=== PATIENT | female | born 1945 | race Caucasian/White ===

== ENCOUNTER 2018-05-18 14:46 | Emergency (ER) | payer OTHER ==
[~2018-05-18] VITALS: Ht 172.7 cm; Wt 102.1 kg
[2018-05-18 15:12] LABS: URINE BILIRUBIN NEGATIVE (Negative); URINE BLOOD TRACE (Negative); URINE CLARITY CLEAR; URINE COLOR YELLOW; URINE GLUCOSE-RANDOM NEGATIVE (Negative); URINE KETONES NEGATIVE (Negative); URINE LEUKOCYTES-REFLEX NEGATIVE (Negative); URINE NITRITE-REFLEX NEGATIVE (Negative); URINE PROTEIN NEGATIVE (Negative); URINE SPECIFIC GRAVITY 1.025 (1.005-1.030); URINE UROBILINOGEN 0.2 E.U./dl (0.2-1.0)
[2018-05-18] MEDS ORDERED: PREDNISONE 10 M10 MG PO (15:44)
[2018-05-18] MEDS ORDERED: PRINZIDE 20-251 EACH PO (15:45)
[2018-05-18] MEDS ORDERED: PLAVIX 75 MG TA75 M1 PO (15:45)
[2018-05-18] MEDS ORDERED: CIPRO500 M1 PO (15:45)
[2018-05-18] MEDS ORDERED: METFORMIN HCL500 MG PO (15:45)
[2018-05-18] MEDS ORDERED: ZOCOR20 MG PO (15:46)
[2018-05-18] MEDS ORDERED: NORVASC5 MG PO (15:46)
[2018-05-18 16:00] LABS: ABSOLUTE EOSINOPHILS 0.1 thou/uL (0.0-0.7); ABSOLUTE LYMPHOCYTES 0.8 thou/uL (0.8-5.3); ABSOLUTE MONOCYTES 0.5 thou/uL (0.0-1.2); ABSOLUTE NEUTROPHILS 6.1 thou/uL (1.6-8.1); BASOPHILS 0.5 %; EOSINOPHILS 0.7 %; HEMATOCRIT 40.8 % (37.0-47.0); HEMOGLOBIN 13.5 gm/dL (12.0-15.0); LYMPHOCYTES 10.5 %; MCHC 33.1 g/dL (28.0-37.0); MCV 90.5 fL (80.0-100.0); MONOCYTES 6.1 %; NUCLEATED RBCS 0 /100WBC; PLATELET COUNT* 177 thou/uL (150-400); POLYS 82.2 %; RBC 4.51 mil/uL (4.20-5.00); RDW-CV 13.9 % (10.5-14.5); WBC 7.5 thou/uL (4.0-11.0)
[2018-05-18 16:10] LABS: CALCIUM 10.1 mg/dL (8.5-10.1); CREATININE 1.5 mg/dL (0.6-1.3); POTASSIUM 3.6 mmol/L (3.5-5.1)
[2018-05-18 16:15] LABS: ALBUMIN 3.8 g/dL (3.4-5.0); TOTAL BILIRUBIN 0.5 mg/dL (<0.1-1.0); TOTAL PROTEIN 7.4 g/dL (6.4-8.2)
[2018-05-18 16:37] LABS: NT-PRO BRAIN NAT PEPTIDE 396 pg/mL (<300); TROPONIN-I LEVEL <0.06 ng/mL (<0.06)
[2018-05-18] MEDS ORDERED: FLOMAX0.4 MG PO (17:13)
[2018-05-18] MEDS ORDERED: VENTOLIN HFA 1818 GM INH (17:13)
[2018-05-18] MEDS ORDERED: NAPROSYN500 MG PO (17:13)
[2018-05-18] MEDS ORDERED: ZOFRAN ODT4 MG PO (17:13)
[2018-05-18] MEDS ORDERED: NORCO 5-325 TA1 EAC1 PO (17:13)
[2018-05-18] MEDS ORDERED: ZPAK PO (17:13)
[2018-05-18 17:31] VITALS: BP 155/89
--- NOTE | 2018-05-19 14:13 | EKG ---
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: : 1945 Requested By: Edgar Plaza Order Number: [id number] MD: Mahendra Boggs Measurements Intervals [place] Rate: 60 P: 27 [place]: 168 QRS: -5 QRSD: 88 T: 0 QT: 406 QTc: 406 Interpretive Statements Sinus rhythm Left ventricular hypertrophy Inferior infarct, old No previous ECG available for comparison Electronically Signed On 05-19-2018 14:13:40 CDT by Mahendra Boggs [email or web address] <ELECTRONICALLY SIGNED> By: Mahendra Boggs MD, [facility] 05/19/18 1413 1614 1614 Mahendra Boggs MD, FACC /EPI
== END 2018-05-18 17:32 | disposition home or self-care (01) ==
LOC: M.ERS 14:46
PROVIDERS: Nurse Practitioner Family
DX: J18.9 Pneumonia, unspecified organism (principal); N20.0 Calculus of kidney; R11.2 Nausea with vomiting, unspecified; Z88.5 Allergy status to narcotic agent; Z90.711 Acquired absence of uterus with remaining cervical stump